=== PATIENT | female | born 1965 | race Caucasian/White ===

== ENCOUNTER 2022-06-02 08:07 | Emergency (ER) | payer OTHER, MEDICAID ==
[2022-06-02] MEDS ORDERED: NORCO 5-325 TA1 EACH PO (10:10)
== END 2022-06-02 10:45 | disposition home or self-care (01) ==
LOC: FER 08:07
DX: R10.11 Right upper quadrant pain (principal); M25.511 Pain in right shoulder; W01.0XXA Fall on same level from slipping, tripping and stumbling without subsequent striking against object, initial encounter
CPT/HCPCS: 71250; J1170; Q0162